=== PATIENT | male | born 1990 | race Caucasian/White ===

== ENCOUNTER 2022-06-25 19:11 | Emergency (ER) | payer SELFPAY ==
[2022-06-25] MEDS ORDERED: Lidocaine 1% 5 ML VIAL INJECT ONE (19:51)
[2022-06-25] MEDS ORDERED: Diphtheria,Pertussis(Acell),Tetanus Vaccine 0.5 ML Syringe IM ONE (19:51)
[2022-06-25] MEDS ORDERED: Bacitracin Oint 1 GM U/D Packet TOP ONE (19:52)
[2022-06-25] MEDS ORDERED: Bupivacaine 0.25% 10 ML SDV INJECT ONE (19:52)
== END 2022-06-25 21:58 | disposition home or self-care (01) ==
LOC: MW.ED 19:11
DX: S91.311A Laceration without foreign body, right foot, initial encounter (principal); Z23 Encounter for immunization; W22.8XXA Striking against or struck by other objects, initial encounter
CPT/HCPCS: 12001; 73630; 90471; 90715; 99283; J3490

== ENCOUNTER 2023-09-11 21:29 | Emergency (ER) | payer SELFPAY ==
[2023-09-11] MEDS ORDERED: Sodium Chloride 0.9% 2.5 ML Syringe FLUSH PRN (21:31)
[2023-09-11] MEDS ORDERED: Sodium Chloride 0.9% 10 ML Syringe FLUSH PRN (21:31)
[2023-09-11] MEDS ORDERED: Naloxone 0.4 MG/ML SDV IVPUSH PRN (21:39)
[2023-09-11] MEDS ORDERED: Sodium Chloride 0.9% 1,000 ML IV ONE (21:39)
[2023-09-11] MEDS ORDERED: Ondansetron 4 MG/2 ML SDV IVPUSH ONE (21:39)
[2023-09-11] MEDS ORDERED: Morphine 2 MG/ML SYRINGE IVPUSH ONE (21:39)
[2023-09-11] MEDS ORDERED: Lidocaine 4% 1 each Patch TOP STA (21:39)
[2023-09-11 21:51] LABS: BASOPHILS ABSOLUTE AUTO 0.04 K/uL (0.00-0.20); BASOPHILS PERCENT AUTO 0.4 % (0.0-1.0); EOSINOPHILS PERCENT AUTO 0.9 % (0.0-6.0); HEMATOCRIT 44.2 % (42.0-52.0); HEMOGLOBIN 15.6 g/dL (14.0-18.0); IMMATURE GRAN ABSOLUTE AUTO 0.04 K/uL (0.00-0.05); IMMATURE GRAN PERCENT AUTO 0.4 % (0.0-0.4); LYMPHOCYTES PERCENT AUTO 21.9 % (24.0-44.0); MEAN CORPUSCULAR HEMOGLOBIN 29.4 pg (28.0-32.0); MEAN CORPUSCULAR HGB CONC 35.3 g/dL (32.0-36.0); MEAN CORPUSCULAR VOLUME 83.4 fL (83.0-99.0); MEAN PLATELET VOLUME 9.4 fL (9.4-12.4); MONOCYTES ABSOLUTE AUTO 0.88 K/uL (0.00-0.80); NEUTROPHILS ABSOLUTE AUTO 7.49 K/uL (1.80-7.70); NEUTROPHILS PERCENT AUTO 68.4 % (41.0-71.0); PLATELET COUNT,PLT 275 K/uL (150-400); WHITE BLOOD CELL COUNT,WBC 10.95 K/uL (3.9-11.3)
[2023-09-11 22:14] LABS: A/G RATIO 1.3 (0.9-1.6); ALBUMIN 4.3 g/dL (3.4-5.0); BILIRUBIN TOTAL 0.8 mg/dL (0.2-1.0); CARBON DIOXIDE,CO2 20.8 mmol/L (21.0-32.0); CREATININE 1.2 mg/dL (0.8-1.3); EST CRCL DRUG DOSING (CG) 88.38 mL/min; POTASSIUM,K 3.9 mmol/L (3.5-5.1); PROTEIN TOTAL,TP 7.5 g/dL (6.4-8.2)
[2023-09-11 22:19] LABS: MAGNESIUM 1.9 mg/dL (1.8-2.4)
[2023-09-11 22:33] LABS: CORONAVIRUS COVID-19 NAA NEGATIVE (NEGATIVE); INFLUENZA A NAA NEGATIVE (NEGATIVE); INFLUENZA B NAA NEGATIVE (NEGATIVE); RESPIRATORY SYNCYTIAL VIR NAA NEGATIVE (NEGATIVE)
== END 2023-09-12 01:31 | disposition home or self-care (01) ==
LOC: MW.ED 21:29
DX: R55 Syncope and collapse (principal); R07.9 Chest pain, unspecified; R51.9 Headache, unspecified
CPT/HCPCS: 0241U; 36415; 70450; 71045; 80053; 83690; 83735; 84484; 85025; 85379; 93005; 96361; 96374; 96375; 99285; A9270; J2270; J2405; J3490; J7030; 93010; 99284